=== PATIENT | male | born 1995 | race Caucasian/White ===

== ENCOUNTER 2024-05-09 07:22 | Emergency (ER) | payer SELFPAY ==
[2024-05-09] MEDS ORDERED: Sodium Chloride 0.9% 2.5 ML Syringe FLUSH PRN (07:46)
[2024-05-09] MEDS ORDERED: Sodium Chloride 0.9% 10 ML Syringe FLUSH PRN (07:46)
[2024-05-09] MEDS ORDERED: Sodium Chloride 0.9% 20 ML SDV IV PRN (07:46)
[2024-05-09 08:00] LABS: BASOPHILS ABSOLUTE AUTO 0.07 K/uL (0.00-0.20); BASOPHILS PERCENT AUTO 0.6 % (0.0-1.0); EOSINOPHILS ABSOLUTE AUTO 0.22 K/uL (0.00-0.45); HEMATOCRIT 45.2 % (42.0-52.0); HEMOGLOBIN 15.6 g/dL (14.0-18.0); IMMATURE GRAN ABSOLUTE AUTO 0.05 K/uL (0.00-0.05); IMMATURE GRAN PERCENT AUTO 0.5 % (0.0-0.4); LYMPHOCYTES ABSOLUTE AUTO 3.45 K/uL (1.00-4.80); LYMPHOCYTES PERCENT AUTO 31.5 % (24.0-44.0); MEAN CORPUSCULAR HEMOGLOBIN 28.2 pg (28.0-32.0); MEAN CORPUSCULAR HGB CONC 34.5 g/dL (32.0-36.0); MEAN CORPUSCULAR VOLUME 81.6 fL (83.0-99.0); MEAN PLATELET VOLUME 8.9 fL (9.4-12.4); MONOCYTES ABSOLUTE AUTO 0.91 K/uL (0.00-0.80); MONOCYTES PERCENT AUTO 8.3 % (0.0-8.0); NEUTROPHILS ABSOLUTE AUTO 6.26 K/uL (1.80-7.70); NEUTROPHILS PERCENT AUTO 57.1 % (41.0-71.0); PLATELET COUNT,PLT 306 K/uL (150-400); RED BLOOD CELL COUNT 5.54 M/uL (4.52-5.90); WHITE BLOOD CELL COUNT,WBC 10.96 K/uL (3.9-11.3)
[2024-05-09 08:13] LABS: APPEARANCE,URINE CLOUDY; COLOR,URINE RED
[2024-05-09 08:14] LABS: BILIRUBIN,URINE NEGATIVE (NEGATIVE); GLUCOSE,URINE NEGATIVE (NEGATIVE); KETONES,URINE NEGATIVE (NEGATIVE); LEUKOCYTE ESTERASE,URINE NEGATIVE (NEGATIVE); NITRITE,URINE NEGATIVE (NEGATIVE); OCCULT BLOOD,URINE LARGE (NEGATIVE); PROTEIN,URINE 30 mg/dL (NEGATIVE); UROBILINOGEN,URINE 0.2 EU/dL (<2.0)
[2024-05-09 08:16] LABS: BACTERIA,URINE NOT SEEN (NEGATIVE); EPITHELIAL CELLS,URINE RARE (NONE-FEW); RBC,URINE TOO NUMEROUS TO CT (0-2/HPF); WBC,URINE 0-4 (0-5/HPF)
[2024-05-09 08:22] LABS: A/G RATIO 1.1 (0.9-1.6); ALBUMIN 4.1 g/dL (3.4-5.0); BILIRUBIN TOTAL 0.3 mg/dL (0.2-1.0); CALCIUM 9.8 mg/dL (8.5-10.1); CARBON DIOXIDE,CO2 29.7 mmol/L (21.0-32.0); EST CRCL DRUG DOSING (CG) 137.36 mL/min; POTASSIUM,K 4.3 mmol/L (3.5-5.1); PROTEIN TOTAL,TP 7.8 g/dL (6.4-8.2)
[2024-05-09] MEDS: Iopamidol 755 MG/ML 500 ML Multipack Bottle IVPUSH STA (08:31)
[2024-05-09] MEDS: Ketorolac 30 MG/ML SDV IVPUSH ONE (08:39)
== END 2024-05-09 09:38 | disposition home or self-care (01) ==
LOC: MW.ED 07:22
DX: R31.9 Hematuria, unspecified (principal)
CPT/HCPCS: 36415; 74177; 80053; 81001; 85025; 96374; 99284; J1885; Q9967